=== PATIENT | female | born 1955 | race American Indian/Alaskan Native ===

== ENCOUNTER 2019-10-23 06:54 | Day surgery (SDC) | payer OTHER, MEDICARE ==
[2019-10-23] MEDS ORDERED: ASPIRIN EC 325 MG TAB PO ONE ×2 (07:13→07:18)
[2019-10-23] MEDS ORDERED: SODIUM CHLORIDE 0.9% 500 ML 500 ML ONE (07:18)
[2019-10-23 07:51] LABS: Basophils # (Auto) 0.1 K/mm3 (0.0-0.1); Basophils % (Auto) 1.2 % (0.0-1.8); Eosinophils % (Auto) 0.7 % (0.0-4.3); Hematocrit 39.8 % (30.3-42.9); Lymphocytes # (Auto) 2.5 K/mm3 (1.2-5.4); Lymphocytes % (Auto) 39.4 % (13.4-35.0); Mean Corpuscular HGB Conc 33 % (30-34); Mean Corpuscular Volume 93 fl (79-97); Monocytes # (Auto) 0.4 K/mm3 (0.0-0.8); Monocytes % (Auto) 6.9 % (0.0-7.3); Platelet Count 252 K/mm3 (140-440); Red Blood Count 4.28 M/mm3 (3.65-5.03); Red Cell Distribution Width 14.5 % (13.2-15.2)
[2019-10-23] MEDS ORDERED: SODIUM CHLORIDE 0.9% 500 ML 500 ML IV SCH (08:00)
[2019-10-23 08:04] LABS: BUN/Creatinine Ratio 12; Blood Urea Nitrogen 12 mg/dL (7-17); Calcium 11.3 mg/dL (8.4-10.2); Hemolysis Index 13
[2019-10-23 08:06] LABS: INR 0.93 (0.87-1.13)
[2019-10-23 08:07] LABS: Partial Thromboplastin Time 26.7 Sec. (24.2-36.6)
[2019-10-23] MEDS ORDERED: HEPARIN/NS 5000 UNIT/500ML 1,000 ML IR ONE (08:54)
[2019-10-23] MEDS ORDERED: HEPARIN 10,000 UNITS/10 ML VIAL ONE (08:54)
[2019-10-23] MEDS ORDERED: fentaNYL 100 MCG/2 ML INJ ONE (08:55)
[2019-10-23] MEDS ORDERED: NITROGLYCERIN SYRINGE 0 ML ONE (08:55)
[2019-10-23] MEDS ORDERED: MIDAZOLAM 2 MG/2 ML INJ ONE (08:55)
[2019-10-23] MEDS: LIDOCAINE (2%) 20 MG/1 ML VIAL 20 ML MDV INFILTRATI ONE ×2 (09:23→09:30)
[2019-10-23] MEDS: VERAPAMIL 5 MG/2 ML INJ ONE ×2 (09:24→09:32)
[2019-10-23] MEDS ORDERED: ATROPINE 0.1% (1 MG/10 ML) CARDIAC SYRINGE ONE (09:28)
--- NOTE | 2019-10-23 10:16 | Cardiac Catherization Report ---
CARDIAC CATHETERIZATION REPORT INDICATION FOR PROCEDURE: The patient is a 64-year-old -[place] female with history of hypertension, was evaluated for chest pains mostly at rest and it was found to be abnormal and the patient is having persistent chest pain in spite of appropriate medical therapy. Because of persistent chest pain, she is scheduled for cardiac catheterization for definitive diagnosis and treatment. The patient is aware of the procedure, potential complications and alternatives of therapy available. DESCRIPTION OF PROCEDURE: The patient was brought to the catheterization laboratory in a fasting condition. The right wrist area and forearm thoroughly cleansed with Betadine solution. Sterile drapes were applied. The patient was evaluated for moderate sedation and was felt to be appropriate candidate for moderate sedation. The patient received IV Versed and fentanyl. Subsequently, right radial artery puncture was made using 21-gauge arterial puncture needle. A 5-Mosotho slender sheath was introduced. A 5-Mosotho multipurpose catheter was used. However, it is to be noted subclavian arteries are very tortuous along with origin of the right subclavian probably distal to the left subclavian artery and it is very tortuous closed to enter the ascending aorta. It was difficult to manipulate the catheter. Angiograms of the right coronary artery were obtained using a 6-Mosotho JR4 catheter and angiograms of the left coronary artery were obtained using a 5-Mosotho JL3.5 catheter. Once satisfactory angiograms were obtained, catheter and sheath were removed. Good hemostasis was achieved. The patient tolerated the procedure well. No untoward complications were noted. The patient was monitored throughout the procedure with pulse oximetry, EKG monitoring, and hemodynamic monitoring. The patient's sedation started at 9:30 a.m. and monitoring ended at 9:53 a.m. At the end of the procedure, the patient is breathing normally, communicating normally without any focal deficits. The patient was transferred to the room in stable condition. Following findings were noted. HEMODYNAMICS: 1. Opening aortic pressure 176/79. Left ventricular pressure 179/26. No gradient across the aortic valve. Estimated ejection fraction 55%. 2. Left ventriculogram done in SUN projection showed normal sized left ventricle with normal contractility. Normal end-diastolic and systolic volumes are noted. Mitral regurgitation could not be evaluated. 3. Right coronary artery dominant vessel arises normally from right coronary cusp. It is angiographically smooth and normal. Similarly, left coronary artery arises normally from left coronary cusp. Left main, LAD, which curves around the apex and its branches and circumflex artery and its branch are tortuous, but angiographically smooth and normal. FINAL IMPRESSION: 1. Normal sized left ventricle with normal contractility. Mitral regurgitation could not be evaluated. 2. Normal coronary anatomy with RCA being the dominant vessel. The patient was transferred to the room in stable condition. The patient will be continued on risk factor modification. At this time, etiology of her chest pains is not clear. They appear to be atypical. Continue risk factor modification. No untoward complications were noted. The patient's sedation started at 9:30 a.m. and ended at 9:53 a.m. JOB# [id number] LIZA/CHARLI
--- NOTE | 2019-10-23 10:37 | Short Stay Summary ---
Short Stay Documentation Date of service: 10/23/19 - History H&P: obtained from office - Allergies and Medications Current Medications: Allergies No Known Allergies Allergy (Verified 10/23/19 07:13) Home Medications Medication Instructions Recorded Confirmed Last Taken Type ISOSORBIDE MONOnitrate [Imdur ER] 30 mg PO DAILY 10/23/19 10/23/19 10/22/19 History Losartan Potassium 100 mg PO DAILY 10/23/19 10/23/19 10/22/19 History Meclizine [Antivert] 25 mg PO TID PRN 10/23/19 10/23/19 10/22/19 History Rosuvastatin Calcium [Crestor] 40 mg PO DAILY 10/23/19 10/23/19 10/22/19 History amLODIPine 5 mg PO DAILY 10/23/19 10/23/19 10/22/19 History atenoloL [Tenormin] 100 mg PO DAILY 10/23/19 10/23/19 10/22/19 History hydrALAZINE [Apresoline TAB] 100 mg PO TID 10/23/19 10/23/19 10/23/19 History hydroCHLOROthiazide [HCTZ] 25 mg PO DAILY 10/23/19 10/23/19 10/22/19 History metFORMIN [Glucophage] 500 mg PO BID 10/23/19 10/23/19 10/22/19 History Active Medications Sodium Chloride (Nacl 0.9% 500 Ml) 500 mls @ 50 mls/hr IV DIRECT RONNIE Stop: 10/23/19 17:59 - Brief post op/procedure progress note Date of procedure: 10/23/19 Pre-op diagnosis: chest pain Post-op diagnosis: same Procedure: [facility] - see dictated cath report Anesthesia: local Estimated blood loss: none Condition: stable - Disposition Condition at discharge: Good Disposition: DC- TO HOME OR SELFCARE - Discharge Diagnoses (1) HTN (hypertension) Status: Chronic (2) Hyperlipidemia Status: Chronic (3) Normal coronary angiogram Status: Chronic Short Stay Discharge Plan Activity: advance as tolerated Diet: low fat, low cholesterol, low salt Wound: open to air, keep clean and dry, per your surgeon's advice Follow up with: MARINA WILBURN MD [Staff Physician] - 7 Days MEGGAN DONOHUE MD [Primary Care Provider] - 7 Days Forms: CardCat PCI D/C Instructions
[2019-10-23 13:25] VITALS: BP 138/72
== END 2019-10-23 13:35 | disposition home or self-care (01) ==
LOC: CATHLABREC 06:54 → CATH 06:54 → CATHLABREC 13:35
PROVIDERS: ATTEND Internal Medicine
DX: R07.89 Other chest pain (principal); I10 Essential (primary) hypertension; E78.5 Hyperlipidemia, unspecified; F41.9 Anxiety disorder, unspecified; Z98.890 Other specified postprocedural states; Z79.899 Other long term (current) drug therapy; Z79.84 Long term (current) use of oral hypoglycemic drugs
CPT/HCPCS: 36415; 80048; 85025; 85610; 85730; 93005; 93458; 99156; C1894; J1644; J2250; J3010; J7040; J0461; Q9967